=== PATIENT | male | born 1940 | race Caucasian/White ===

== ENCOUNTER 2016-12-01 12:48 | Emergency (ER) | payer MEDICARE ==
[~2016-12-01] VITALS: Ht 177.8 cm; Wt 90.7 kg
[2016-12-01] MEDS ORDERED: PROVENTIL2.5 MG/3 M INH (13:52)
[2016-12-01] MEDS ORDERED: LIPITOR80 MG PO (13:54)
== END 2016-12-01 15:12 | disposition short-term general hospital (02) ==
LOC: ER 12:48
DX: A41.9 Sepsis, unspecified organism (principal); J18.9 Pneumonia, unspecified organism; N28.9 Disorder of kidney and ureter, unspecified; R79.89 Other specified abnormal findings of blood chemistry; I48.91 Unspecified atrial fibrillation; I25.10 Atherosclerotic heart disease of native coronary artery without angina pectoris; E11.9 Type 2 diabetes mellitus without complications; J44.9 Chronic obstructive pulmonary disease, unspecified; I10 Essential (primary) hypertension; N47.1 Phimosis; F17.210 Nicotine dependence, cigarettes, uncomplicated; Z79.899 Other long term (current) drug therapy; Z96.653 Presence of artificial knee joint, bilateral; Z79.4 Long term (current) use of insulin; Z79.84 Long term (current) use of oral hypoglycemic drugs
CPT/HCPCS: J2060; J2543